=== PATIENT | female | born 1955 | race Two or more races ===

== ENCOUNTER 2021-01-27 11:32 | Inpatient (IN) | payer OTHER ==
[2021-01-27 12:38] VITALS: BMI 26.4
[2021-01-27] MEDS ORDERED: ONDANSETRON *ODT* 4 MG TABLET SL PRN (12:38)
[2021-01-27] MEDS ORDERED: ACETAMINOPHEN 325 MG TABLET (FP) PO PRN ×2 (12:38)
[2021-01-27] MEDS ORDERED: chlordiazePOXIDE HCL 25 MG CAPSULE PO PRN (12:38)
[2021-01-27] MEDS ORDERED: MAG HYDROX/AL HYDROX/SIMETH 30 ML UNIT-DOSE CUP PO PRN (12:38)
[2021-01-27] MEDS ORDERED: NICOTINE POLACRILEX 2 MG GUM BUC PRN (12:38)
[2021-01-27] MEDS ORDERED: IBUPROFEN 400 MG TABLET (FP) PO PRN (12:38)
[2021-01-27] MEDS ORDERED: METHOCARBAMOL 500 MG TABLET PO PRN (12:38)
[2021-01-27] MEDS ORDERED: MAGNESIUM HYDROX 2400MG/30ML ORAL SUSPENSION 30 ML CUP PO PRN (12:38)
[2021-01-27] MEDS ORDERED: BISMUTH SUBSALICYLATE 524 MG/30 ML UD PO PRN (12:38)
[2021-01-27] MEDS ORDERED: MAGNESIUM CITRATE 300 ML BOTTLE PO PRN (12:38)
[2021-01-27] MEDS ORDERED: MENTHOL/PHENOL 1 EACH UD MM PRN (12:38)
[2021-01-27] MEDS: PRENATAL VITAMINS W/ FOLIC ACID TABLET (FP) PO SCH (14:26)
[2021-01-27] MEDS: chlordiazePOXIDE HCL 25 MG CAPSULE PO SCH ×3 (14:26→22:48)
[2021-01-27] MEDS: hydrOXYzine PAMOATE 25 MG CAPSULE (FP) PO SCH ×3 (14:26→22:49)
[2021-01-27 14:32] LABS: HEMATOCRIT 25.8 % (32.4-45.2); HEMOGLOBIN 8.8 GM/dL (10.7-15.3); MCH 36.6 pg (25.7-33.7); MCHC 34.1 g/dl (32.0-36.0); MEAN CELL VOLUME 107.2 fl (80-96); MEAN PLT VOLUME 8.7 fl (7.5-11.1); PLATELET COUNT 101 K/MM3 (134-434); RDW 18.2 % (11.6-15.6)
[2021-01-27 14:39] LABS: CALCIUM 8.8 mg/dL (8.5-10.1)
[2021-01-27 14:40] LABS: ALBUMIN 3.4 g/dl (3.4-5.0)
[2021-01-27 14:43] LABS: BILIRUBIN,TOTAL 1.4 mg/dL (0.2-1); CREATININE 0.8 mg/dL (0.55-1.3)
[2021-01-27] MEDS: THIAMINE HCL 100 MG TABLET (FP) PO SCH (22:49)
[2021-01-27] MEDS: MELATONIN 5 MG TABLETS PO SCH (22:49)
[2021-01-28] MEDS: chlordiazePOXIDE HCL 25 MG CAPSULE PO SCH ×4 (06:11→23:12)
[2021-01-28] MEDS: hydrOXYzine PAMOATE 25 MG CAPSULE (FP) PO SCH ×5 (06:12→22:50)
[2021-01-28] MEDS: PRENATAL VITAMINS W/ FOLIC ACID TABLET (FP) PO SCH (10:31)
[2021-01-28] MEDS ORDERED: NICOTINE 21 MG/24 HOURS TOPICAL PATCH TD SCH ×2 (11:34→13:00)
[2021-01-28] MEDS ORDERED: MASKS NR ONE (11:40)
[2021-01-28] MEDS ORDERED: COLLOIDAL OATMEAL 1 BAR EACH TP PRN (14:37)
[2021-01-28] MEDS ORDERED: AMMONIUM LACTATE 12% LOTION 225 GM BOTTLE TP PRN (14:37)
[2021-01-28] MEDS: FERROUS SO4 325 MG TABLET (FP) PO SCH (17:34)
[2021-01-28] MEDS ORDERED: traZODone HCL 50 MG TABLET (FP) PO SCH (22:00)
[2021-01-28 22:03] VITALS: BP 121/77; PULSE 68; TEMP 97.1
[2021-01-28] MEDS: MELATONIN 5 MG TABLETS PO SCH (22:50)
[2021-01-28] MEDS: THIAMINE HCL 100 MG TABLET (FP) PO SCH (22:51)
[2021-01-29] MEDS: hydrOXYzine PAMOATE 25 MG CAPSULE (FP) PO SCH ×2 (06:11→10:40)
[2021-01-29] MEDS: chlordiazePOXIDE HCL 25 MG CAPSULE PO SCH ×2 (06:11→10:40)
[2021-01-29] MEDS ORDERED: SELENIUM SULFIDE 2.5% LOTION 4 OZ. TP SCH (10:00)
[2021-01-29] MEDS: PRENATAL VITAMINS W/ FOLIC ACID TABLET (FP) PO SCH (10:40)
[2021-01-29] MEDS: FERROUS SO4 325 MG TABLET (FP) PO SCH ×2 (10:40→13:02)
[2021-01-30] MEDS ORDERED: chlordiazePOXIDE HCL 10 MG CAPSULE PO PRN
[2021-01-30] MEDS ORDERED: chlordiazePOXIDE HCL 10 MG CAPSULE PO SCH (05:00)
[2021-01-31] MEDS ORDERED: chlordiazePOXIDE HCL 10 MG CAPSULE PO SCH (05:00)
[2021-02-01] MEDS ORDERED: chlordiazePOXIDE HCL 10 MG CAPSULE PO ONE (05:00)
== END 2021-01-29 11:41 | disposition left against medical advice (07) | DRG 770 ==
LOC: EDSEX → YASAS 11:32 → Y3N 13:38
PROVIDERS: ADMIT Allergy & Immunology; ATTEND Allergy & Immunology
PROC: HZ2ZZZZ Detoxification Services for Substance Abuse Treatment (ICD-10-PCS; principal; 2021-01-27)
DX: F10.230 Alcohol dependence with withdrawal, uncomplicated (principal); F17.210 Nicotine dependence, cigarettes, uncomplicated; F10.24 Alcohol dependence with alcohol-induced mood disorder; F32.9 Major depressive disorder, single episode, unspecified; F43.10 Post-traumatic stress disorder, unspecified; G40.509 Epileptic seizures related to external causes, not intractable, without status epilepticus; M51.36 Other intervertebral disc degeneration, lumbar region; L29.8 Other pruritus; R19.5 Other fecal abnormalities; Z96.641 Presence of right artificial hip joint
CPT/HCPCS: 36415; 80053; 85027; 86780; 93005; 93010; C9803; U0003

== ENCOUNTER 2021-01-28 20:35 | Inpatient (IN) | payer OTHER ==
[2021-01-28 21:14] VITALS: BMI 26.4
[2021-01-28 22:19] LABS: BASO % 0.8 % (0-2.0); EOS % 6.2 % (0-4.5); HEMATOCRIT 26.6 % (32.4-45.2); HEMOGLOBIN 9.1 GM/dL (10.7-15.3); LYMPH % 31.7 % (8-40); MCH 36.9 pg (25.7-33.7); MCHC 34.2 g/dl (32.0-36.0); MEAN CELL VOLUME 107.8 fl (80-96); MONO % 10.6 % (3.8-10.2); NEUT % 50.7 % (42.8-82.8); PLATELET COUNT 108 K/MM3 (134-434); RBC 2.47 M/mm3 (3.60-5.2); RDW 18.1 % (11.6-15.6); WHITE BLOOD COUNT 4.8 K/mm3 (4.0-10.0)
[2021-01-28 22:23] LABS: INR 1.07 (0.83-1.09); PROTHROMBIN TIME (PATIENT) 13.1 SEC (9.7-13.0)
[2021-01-28 22:26] LABS: ACTIVATED PTT 27.6 SECONDS (25.2-36.5)
[2021-01-28] MEDS ORDERED: chlordiazePOXIDE HCL 25 MG CAPSULE PO ONE (23:17)
[2021-01-28] MEDS ORDERED: traZODone HCL 50 MG TABLET (FP) PO ONE (23:17)
[2021-01-28] MEDS ORDERED: chlordiazePOXIDE HCL 25 MG CAPSULE ONE (23:22)
[2021-01-28 23:41] LABS: ANISOCYTOSIS 0; MACROCYTOSIS 1+
[2021-01-28 23:57] LABS: ALBUMIN 3.4 g/dl (3.4-5.0); BLOOD UREA NITROGEN 14.2 mg/dL (7-18); CALCIUM 9.4 mg/dL (8.5-10.1); CREATININE 0.7 mg/dL (0.55-1.3); POTASSIUM 4.3 mmol/L (3.5-5.1); TOT PROT 6.7 g/dl (6.4-8.2)
[2021-01-29 01:10] VITALS: BP 111/67; PULSE 85; TEMP 98.4
[2021-01-29] MEDS ORDERED: PANTOPRAZOLE SODIUM 40 MG VIAL IVPUSH ONE (01:10)
[2021-01-29] MEDS ORDERED: PANTOPRAZOLE SODIUM 40 MG/100 ML BAG IVPB ONE (01:14)
[2021-01-29] MEDS ORDERED: ACETAMINOPHEN 325 MG TABLET (FP) PO PRN (05:49)
[2021-01-29] MEDS ORDERED: METOCLOPRAMIDE HCL INJECTION 10 MG/2 ML VIAL IVPUSH PRN (05:52)
[2021-01-29] MEDS ORDERED: NICOTINE 21 MG/24 HOURS TOPICAL PATCH TD SCH ×2 (05:54→10:00)
[2021-01-29] MEDS ORDERED: chlordiazePOXIDE HCL 25 MG CAPSULE PO PRN (05:54)
[2021-01-29] MEDS ORDERED: PANTOPRAZOLE SODIUM 80 MG in SODIUM CHLORIDE 100 ML IVPB SCH (06:00)
[2021-01-29] MEDS ORDERED: SODIUM CHLORIDE 1,000 ML IV SCH (06:00)
[2021-01-29] MEDS ORDERED: FOLIC ACID INJECTION - 1 MG, THIAMINE HCL 100 MG, MULTIVIT INJECTION ADULT 10 ML in SOD... IVPB ONE (06:45)
[2021-01-29] MEDS ORDERED: chlordiazePOXIDE HCL 10 MG CAPSULE PO PRN (08:30)
[2021-01-29] MEDS ORDERED: PANTOPRAZOLE SODIUM 40 MG VIAL IVPUSH SCH (10:00)
[2021-01-29] MEDS ORDERED: THIAMINE HCL 200 MG/2 ML VIAL IVPB SCH (10:00)
[2021-01-29] MEDS ORDERED: FOLIC ACID 1 MG TABLET (FP) PO SCH (10:00)
[2021-01-29] MEDS ORDERED: chlordiazePOXIDE HCL 25 MG CAPSULE PO SCH ×2 (11:00)
[2021-01-29] MEDS ORDERED: traZODone HCL 50 MG TABLET (FP) PO SCH (22:00)
[2021-01-29] MEDS ORDERED: PATIENT'S OWN MEDICATION (NON-FORMULARY) (Trazodone Hcl [Trazodone Hcl] 150 MG Tablet) PO SCH (22:00)
[2021-01-30] MEDS ORDERED: chlordiazePOXIDE HCL 10 MG CAPSULE PO SCH (11:00)
[2021-01-31] MEDS ORDERED: chlordiazePOXIDE HCL 25 MG CAPSULE PO SCH (05:00)
[2021-01-31] MEDS ORDERED: chlordiazePOXIDE HCL 10 MG CAPSULE PO SCH (11:00)
[2021-02-01] MEDS ORDERED: chlordiazePOXIDE HCL 10 MG CAPSULE PO PRN
[2021-02-01] MEDS ORDERED: chlordiazePOXIDE HCL 10 MG CAPSULE PO ONE (05:00)
[2021-02-01] MEDS ORDERED: chlordiazePOXIDE HCL 10 MG CAPSULE PO SCH (05:00)
[2021-02-02] MEDS ORDERED: chlordiazePOXIDE HCL 10 MG CAPSULE PO SCH (05:00)
[2021-02-03] MEDS ORDERED: chlordiazePOXIDE HCL 10 MG CAPSULE PO ONE (05:00)
== END 2021-01-29 09:50 | disposition left against medical advice (07) | DRG 253 ==
LOC: JER 20:35 → JERBED 01-29 03:15
PROVIDERS: ADMIT Internal Medicine; ATTEND Internal Medicine
PROC: HZ2ZZZZ Detoxification Services for Substance Abuse Treatment (ICD-10-PCS; principal; 2021-01-29)
DX: K92.2 Gastrointestinal hemorrhage, unspecified (principal); F32.9 Major depressive disorder, single episode, unspecified; D53.9 Nutritional anemia, unspecified; F17.210 Nicotine dependence, cigarettes, uncomplicated; F43.10 Post-traumatic stress disorder, unspecified; F10.239 Alcohol dependence with withdrawal, unspecified
CPT/HCPCS: 36415; 71045-TC-FY; 80053; 82272; 82728; 83540; 83550; 85025; 85610; 85730; 86850; 86900; 86901; 93005; 93010; 99285-25

== ENCOUNTER 2021-03-08 11:55 | Emergency (ER) | payer OTHER ==
[2021-03-08 12:16] VITALS: BP 135/84; PULSE 95; TEMP 98.5; BMI 24.5
[2021-03-08] MEDS ORDERED: FOLIC ACID INJECTION - 1 MG, THIAMINE HCL 100 MG, MULTIVIT INJECTION ADULT 10 ML in SOD... IVPB ONE (12:52)
[2021-03-08] MEDS ORDERED: HALOPERIDOL LACTATE 5 MG/ML IM ONE (13:52)
[2021-03-08 14:11] LABS: EOS % 0.5 % (0-4.5); HEMATOCRIT 29.2 % (32.4-45.2); HEMOGLOBIN 9.9 GM/dL (10.7-15.3); LYMPH % 39.3 % (8-40); MCH 35.4 pg (25.7-33.7); MEAN PLT VOLUME 8.1 fl (7.5-11.1); MONO % 9.4 % (3.8-10.2); NEUT % 49.8 % (42.8-82.8); PLATELET COUNT 209 K/MM3 (134-434); PROTHROMBIN TIME (PATIENT) 12.1 SEC (9.7-13.0); RBC 2.81 M/mm3 (3.60-5.2); RDW 19.3 % (11.6-15.6); WHITE BLOOD COUNT 5.1 K/mm3 (4.0-10.0)
[2021-03-08] MEDS ORDERED: HALOPERIDOL LACTATE 5 MG/ML ONE ×2 (14:12→14:15)
[2021-03-08 14:14] LABS: ACTIVATED PTT 28.5 SECONDS (25.2-36.5)
[2021-03-08 14:25] LABS: CALCIUM 8.4 mg/dL (8.5-10.1)
[2021-03-08 14:26] LABS: ALBUMIN 3.7 g/dl (3.4-5.0); BLOOD UREA NITROGEN 14.6 mg/dL (7-18); MAGNESIUM 1.6 mg/dL (1.8-2.4)
[2021-03-08 14:29] LABS: CREATININE 0.8 mg/dL (0.55-1.3); PHOSPHOROUS 3.4 mg/dL (2.5-4.9)
[2021-03-08 14:31] LABS: BILIRUBIN,TOTAL 0.6 mg/dL (0.2-1); TOT PROT 8.2 g/dl (6.4-8.2)
== END 2021-03-08 17:10 | disposition home or self-care (01) ==
LOC: JER 11:55
PROC: 3E023NZ Introduction of Analgesics, Hypnotics, Sedatives into Muscle, Percutaneous Approach (ICD-10-PCS; principal; 2021-03-08)
DX: F10.929 Alcohol use, unspecified with intoxication, unspecified (principal)
CPT/HCPCS: 36415; 70450-TC; 70486-TC; 72125-TC; 80053; 80307; 83735; 84100; 85025; 85610; 85730; 93005; 93010; 99285-25

== ENCOUNTER 2021-03-08 17:30 | Inpatient (IN) | payer OTHER ==
[2021-03-08] MEDS: THIAMINE HCL 100 MG TABLET (FP) PO SCH (11:40)
[2021-03-08 18:21] VITALS: BMI 24.4
[2021-03-08] MEDS ORDERED: MENTHOL/PHENOL 1 EACH UD MM PRN (18:34)
[2021-03-08] MEDS ORDERED: MAGNESIUM CITRATE 300 ML BOTTLE PO PRN (18:34)
[2021-03-08] MEDS ORDERED: LORazepam 1 MG TABLET PO PRN (18:34)
[2021-03-08] MEDS ORDERED: ONDANSETRON *ODT* 4 MG TABLET SL PRN (18:34)
[2021-03-08] MEDS ORDERED: MAG HYDROX/AL HYDROX/SIMETH 30 ML UNIT-DOSE CUP PO PRN (18:34)
[2021-03-08] MEDS ORDERED: MAGNESIUM HYDROX 2400MG/30ML ORAL SUSPENSION 30 ML CUP PO PRN (18:34)
[2021-03-08] MEDS ORDERED: ACETAMINOPHEN 325 MG TABLET (FP) PO PRN ×2 (18:34)
[2021-03-08] MEDS ORDERED: IBUPROFEN 400 MG TABLET (FP) PO PRN (18:34)
[2021-03-08] MEDS ORDERED: METHOCARBAMOL 500 MG TABLET PO PRN (18:34)
[2021-03-08] MEDS ORDERED: NICOTINE POLACRILEX 2 MG GUM BUC PRN (18:34)
[2021-03-08] MEDS ORDERED: BISMUTH SUBSALICYLATE 524 MG/30 ML UD PO PRN (18:34)
[2021-03-08] MEDS ORDERED: LORazepam 1 MG TABLET ONE (19:58)
[2021-03-08] MEDS ORDERED: hydrOXYzine PAMOATE 25 MG CAPSULE (FP) PO ONE (19:58)
[2021-03-08] MEDS: hydrOXYzine PAMOATE 25 MG CAPSULE (FP) PO PRN (20:00)
[2021-03-08] MEDS ORDERED: LORazepam 2 MG TABLET ONE (23:35)
[2021-03-08] MEDS: LORazepam 2 MG TABLET PO SCH (23:40)
[2021-03-08] MEDS: MELATONIN 5 MG TABLETS PO SCH (23:40)
[2021-03-09] MEDS: LORazepam 2 MG TABLET PO SCH ×4 (06:09→22:21)
[2021-03-09] MEDS: NICOTINE 7 MG/24 HOURS TOPICAL PATCH TD SCH (10:22)
[2021-03-09] MEDS: PRENATAL VITAMINS W/ FOLIC ACID TABLET (FP) PO SCH (10:22)
[2021-03-09 10:44] LABS: HEMATOCRIT 24.5 % (32.4-45.2); HEMOGLOBIN 8.4 GM/dL (10.7-15.3); MCH 35.2 pg (25.7-33.7); MCHC 34.4 g/dl (32.0-36.0); MEAN CELL VOLUME 102.2 fl (80-96); MEAN PLT VOLUME 8.6 fl (7.5-11.1); PLATELET COUNT 130 K/MM3 (134-434); RBC 2.39 M/mm3 (3.60-5.2); RDW 18.5 % (11.6-15.6); WHITE BLOOD COUNT 4.2 K/mm3 (4.0-10.0)
[2021-03-09 10:47] LABS: CALCIUM 8.2 mg/dL (8.5-10.1)
[2021-03-09 10:48] LABS: ALBUMIN 3.2 g/dl (3.4-5.0); BLOOD UREA NITROGEN 13.4 mg/dL (7-18)
[2021-03-09 10:51] LABS: CREATININE 0.8 mg/dL (0.55-1.3)
[2021-03-09 10:52] LABS: BILIRUBIN,TOTAL 1.2 mg/dL (0.2-1)
[2021-03-09] MEDS: hydrOXYzine PAMOATE 25 MG CAPSULE (FP) PO PRN (17:06)
[2021-03-09] MEDS ORDERED: traZODone HCL 100 MG TABLET (FP) PO SCH (22:00)
[2021-03-09] MEDS: THIAMINE HCL 100 MG TABLET (FP) PO SCH (22:21)
[2021-03-09] MEDS: MELATONIN 5 MG TABLETS PO SCH (22:22)
[2021-03-10] MEDS: LORazepam 1 MG TABLET PO SCH ×2 (05:39→11:37)
[2021-03-10 09:22] VITALS: BP 118/68; PULSE 132; TEMP 96.9
[2021-03-10] MEDS: NICOTINE 7 MG/24 HOURS TOPICAL PATCH TD SCH (11:37)
[2021-03-10] MEDS: PRENATAL VITAMINS W/ FOLIC ACID TABLET (FP) PO SCH (11:38)
[2021-03-11] MEDS ORDERED: LORazepam 0.5 MG TABLET PO PRN
[2021-03-11] MEDS ORDERED: LORazepam 0.5 MG TABLET PO SCH (05:00)
[2021-03-12] MEDS ORDERED: LORazepam 0.5 MG TABLET PO ONE (05:00)
== END 2021-03-10 11:51 | disposition left against medical advice (07) | DRG 770 ==
LOC: YASAS 17:30 → Y6N 03-09 01:09
PROVIDERS: ADMIT Allergy & Immunology; ATTEND Allergy & Immunology
PROC: HZ2ZZZZ Detoxification Services for Substance Abuse Treatment (ICD-10-PCS; principal; 2021-03-09)
DX: F10.230 Alcohol dependence with withdrawal, uncomplicated (principal); F17.210 Nicotine dependence, cigarettes, uncomplicated; F10.282 Alcohol dependence with alcohol-induced sleep disorder; F10.24 Alcohol dependence with alcohol-induced mood disorder; F32.9 Major depressive disorder, single episode, unspecified; F43.10 Post-traumatic stress disorder, unspecified; M51.36 Other intervertebral disc degeneration, lumbar region; Z96.641 Presence of right artificial hip joint; R29.6 Repeated falls; Z99.89 Dependence on other enabling machines and devices
CPT/HCPCS: 36415; 80053; 85027; 86780; C9803; U0003; U0005

== ENCOUNTER 2022-01-01 18:07 | Inpatient (IN) | payer OTHER ==
[2022-01-01 18:38] VITALS: BMI 24.5
[2022-01-01] MEDS ORDERED: MAGNESIUM HYDROX 2400MG/30ML ORAL SUSPENSION 30 ML CUP PO PRN (19:26)
[2022-01-01] MEDS ORDERED: MENTHOL/PHENOL 1 EACH UD MM PRN (19:26)
[2022-01-01] MEDS ORDERED: ONDANSETRON *ODT* 4 MG TABLET SL PRN (19:26)
[2022-01-01] MEDS ORDERED: BISMUTH SUBSALICYLATE 524 MG/30 ML PO PRN (19:26)
[2022-01-01] MEDS ORDERED: MELATONIN 5 MG TABLETS PO PRN (19:26)
[2022-01-01] MEDS ORDERED: MAGNESIUM CITRATE 300 ML BOTTLE PO PRN (19:26)
[2022-01-01] MEDS ORDERED: IBUPROFEN 400 MG TABLET (FP) PO PRN (19:26)
[2022-01-01] MEDS ORDERED: MAG HYDROX/AL HYDROX/SIMETH 30 ML UNIT-DOSE CUP PO PRN (19:26)
[2022-01-01] MEDS ORDERED: NICOTINE POLACRILEX 2 MG GUM BUC PRN (19:26)
[2022-01-01] MEDS ORDERED: LOPERAMIDE HCL 2 MG CAPSULE PO PRN (19:26)
[2022-01-01] MEDS ORDERED: chlordiazePOXIDE HCL 25 MG CAPSULE PO PRN (19:29)
[2022-01-01] MEDS ORDERED: chlordiazePOXIDE HCL 25 MG CAPSULE PO ONE (19:29)
[2022-01-01] MEDS ORDERED: METOPROLOL TARTRATE 25 MG TABLET (FP) PO ONE (19:31)
[2022-01-01] MEDS ORDERED: chlordiazePOXIDE HCL 25 MG CAPSULE ONE (19:36)
[2022-01-01] MEDS: chlordiazePOXIDE HCL 25 MG CAPSULE PO SCH (22:22)
[2022-01-01] MEDS: THIAMINE HCL 100 MG TABLET (FP) PO SCH (22:23)
[2022-01-02] MEDS: hydrOXYzine PAMOATE 25 MG CAPSULE (FP) PO PRN ×2 (02:49→10:49)
[2022-01-02] MEDS: chlordiazePOXIDE HCL 25 MG CAPSULE PO SCH ×4 (05:29→22:31)
[2022-01-02] MEDS: PRENATAL VITAMINS W/ FOLIC ACID TABLET (FP) PO SCH (10:49)
[2022-01-02] MEDS: METHOCARBAMOL 500 MG TABLET PO PRN (10:49)
[2022-01-02 11:53] LABS: HEMATOCRIT 25.4 % (32.4-45.2); MCH 26.8 pg (25.7-33.7); MCHC 31.6 g/dl (32.0-36.0); MEAN CELL VOLUME 84.7 fl (80-96); MEAN PLT VOLUME 8.6 fl (7.5-11.1); PLATELET COUNT 126 10^3/uL (134-434); RDW 20.1 % (11.6-15.6); WHITE BLOOD COUNT 3.2 K/mm3 (4.0-10.0)
[2022-01-02 12:09] LABS: CALCIUM 8.5 mg/dL (8.5-10.1)
[2022-01-02 12:10] LABS: ALBUMIN 3.2 g/dl (3.4-5.0); BLOOD UREA NITROGEN 18.2 mg/dL (7-18)
[2022-01-02 12:13] LABS: CREATININE 0.8 mg/dL (0.55-1.3)
[2022-01-02 12:15] LABS: BILIRUBIN,TOTAL 0.8 mg/dL (0.2-1); TOT PROT 6.7 g/dl (6.4-8.2)
[2022-01-02] MEDS: THIAMINE HCL 100 MG TABLET (FP) PO SCH (22:31)
[2022-01-02] MEDS: traZODone HCL 50 MG TABLET (FP) PO SCH (22:31)
[2022-01-03] MEDS: chlordiazePOXIDE HCL 25 MG CAPSULE PO SCH ×4 (06:06→22:51)
[2022-01-03] MEDS: METHOCARBAMOL 500 MG TABLET PO PRN (11:06)
[2022-01-03] MEDS: hydrOXYzine PAMOATE 25 MG CAPSULE (FP) PO PRN (11:06)
[2022-01-03] MEDS: PRENATAL VITAMINS W/ FOLIC ACID TABLET (FP) PO SCH (11:06)
[2022-01-03 14:06] LABS: SARS-CoV-2 NAA Not Detected (Not Detected)
[2022-01-03] MEDS: THIAMINE HCL 100 MG TABLET (FP) PO SCH (21:59)
[2022-01-03] MEDS: traZODone HCL 50 MG TABLET (FP) PO SCH (21:59)
[2022-01-04] MEDS ORDERED: chlordiazePOXIDE HCL 10 MG CAPSULE PO PRN
[2022-01-04] MEDS: chlordiazePOXIDE HCL 10 MG CAPSULE PO SCH ×4 (06:13→22:08)
[2022-01-04] MEDS: FERROUS SO4 325 MG TABLET (FP) PO SCH ×3 (08:03→17:52)
[2022-01-04] MEDS: PRENATAL VITAMINS W/ FOLIC ACID TABLET (FP) PO SCH (10:44)
[2022-01-04 12:43] LABS: BASO % 0.8 % (0-2.0); EOS % 7.1 % (0-4.5); HEMATOCRIT 25.8 % (32.4-45.2); HEMOGLOBIN 8.4 GM/dL (10.7-15.3); LYMPH % 23.4 % (8-40); MCH 27.6 pg (25.7-33.7); MCHC 32.5 g/dl (32.0-36.0); MEAN CELL VOLUME 84.7 fl (80-96); MEAN PLT VOLUME 8.9 fl (7.5-11.1); NEUT % 58.7 % (42.8-82.8); PLATELET COUNT 117 10^3/uL (134-434); RBC 3.04 M/mm3 (3.60-5.2); RDW 20.4 % (11.6-15.6); WHITE BLOOD COUNT 4.4 K/mm3 (4.0-10.0)
[2022-01-04] MEDS: THIAMINE HCL 100 MG TABLET (FP) PO SCH (22:08)
[2022-01-04] MEDS: traZODone HCL 50 MG TABLET (FP) PO SCH (22:09)
[2022-01-05] MEDS ORDERED: chlordiazePOXIDE HCL 10 MG CAPSULE PO SCH (05:00)
[2022-01-05] MEDS: FERROUS SO4 325 MG TABLET (FP) PO SCH ×2 (07:54→11:50)
[2022-01-05 09:41] VITALS: BP 106/62; PULSE 102; TEMP 97.1
[2022-01-05] MEDS ORDERED: MULTIVITAMINS (DAILY MVI) TABLET (FP) PO SCH (10:00)
[2022-01-06] MEDS ORDERED: chlordiazePOXIDE HCL 10 MG CAPSULE PO ONE (05:00)
== END 2022-01-05 17:00 | disposition home or self-care (01) | DRG 775 ==
LOC: YASAS 18:07 → Y6N 21:13
PROVIDERS: ADMIT Allergy & Immunology; ATTEND Allergy & Immunology
PROC: HZ2ZZZZ Detoxification Services for Substance Abuse Treatment (ICD-10-PCS; principal; 2022-01-01)
DX: F10.230 Alcohol dependence with withdrawal, uncomplicated (principal); F17.210 Nicotine dependence, cigarettes, uncomplicated; F10.282 Alcohol dependence with alcohol-induced sleep disorder; F32.A Depression, unspecified; F43.10 Post-traumatic stress disorder, unspecified; D61.818 Other pancytopenia; D50.9 Iron deficiency anemia, unspecified; I10 Essential (primary) hypertension; R41.82 Altered mental status, unspecified; R74.01 Elevation of levels of liver transaminase levels; R26.89 Other abnormalities of gait and mobility; Z96.641 Presence of right artificial hip joint; W19.XXXA Unspecified fall, initial encounter; Y92.230 Patient room in hospital as the place of occurrence of the external cause; Z99.89 Dependence on other enabling machines and devices
CPT/HCPCS: 36415; 80053; 82607; 82746; 83540; 84450; 85025; 85027; 86780; 87811; C9803; U0003; U0005

== ENCOUNTER 2022-01-04 02:11 | Emergency (ER) | payer OTHER ==
[2022-01-04 02:28] VITALS: BP 121/62; PULSE 74; TEMP 97.6; BMI 25.7
== END 2022-01-04 05:54 | disposition home or self-care (01) ==
LOC: JER 02:11
DX: R29.6 Repeated falls (principal)
CPT/HCPCS: 70450-TC; 72125-TC; 99284-25

== ENCOUNTER 2022-01-05 10:03 | Emergency (ER) | payer OTHER ==
[2022-01-05 10:30] VITALS: PULSE 78; TEMP 98; BMI 25.7
[2022-01-05 12:06] LABS: BASO % 0.4 % (0-2.0); EOS % 5.8 % (0-4.5); HEMATOCRIT 24.7 % (32.4-45.2); HEMOGLOBIN 7.9 GM/dL (10.7-15.3); MCH 27.3 pg (25.7-33.7); MCHC 31.8 g/dl (32.0-36.0); MEAN CELL VOLUME 85.7 fl (80-96); MEAN PLT VOLUME 8.3 fl (7.5-11.1); NEUT % 47.8 % (42.8-82.8); PLATELET COUNT 97 10^3/uL (134-434); RBC 2.89 M/mm3 (3.60-5.2); RDW 20.9 % (11.6-15.6); WHITE BLOOD COUNT 4.3 K/mm3 (4.0-10.0)
[2022-01-05 12:24] LABS: CHLORIDE 101 mmol/L (98-107); SODIUM 137 mmol/L (136-145)
[2022-01-05 12:26] LABS: CALCIUM 9.2 mg/dL (8.5-10.1)
[2022-01-05 12:27] LABS: ALBUMIN 3.4 g/dl (3.4-5.0); ANION GAP 7 MMOL/L (8-16); BLOOD UREA NITROGEN 13.2 mg/dL (7-18); CO2 28 mmol/L (21-32); GLUCOSE,RANDOM 113 mg/dL (74-106)
[2022-01-05 12:30] LABS: CREATININE 1.2 mg/dL (0.55-1.3); SGOT/AST 58 U/L (15-37); SGPT/ALT 38 U/L (13-61)
[2022-01-05 12:31] LABS: BILIRUBIN,TOTAL 0.6 mg/dL (0.2-1)
[2022-01-05 12:33] LABS: ALK PHOS 86 U/L (45-117)
[2022-01-05 13:29] LABS: ANISOCYTOSIS 2+; MACROCYTOSIS 1+; OVALOCYTE 1+; PLATELET ESTIMATE DECREASED
[2022-01-05 15:59] VITALS: BP 102/51
== END 2022-01-05 15:57 | disposition home or self-care (01) ==
LOC: JER 10:03
DX: R41.82 Altered mental status, unspecified (principal)
CPT/HCPCS: 36415; 70450-TC; 80053; 80307; 82140; 82962; 84443; 85025; 99284-25

== ENCOUNTER 2022-08-03 17:21 | Inpatient (IN) | payer OTHER ==
[2022-08-03 18:26] VITALS: BMI 28.3
[2022-08-03] MEDS ORDERED: chlordiazePOXIDE HCL 25 MG CAPSULE PO ONE (19:24)
[2022-08-03] MEDS ORDERED: chlordiazePOXIDE HCL 25 MG CAPSULE ONE (20:20)
[2022-08-03] MEDS ORDERED: SODIUM CHLORIDE 1,000 ML IV STA (20:58)
[2022-08-03 23:54] LABS: BASO % 0.8 % (0-2.0); EOS % 0.2 % (0-4.5); HEMATOCRIT 22.7 % (32.4-45.2); HEMOGLOBIN 7.4 GM/dL (10.7-15.3); LYMPH % 24.7 % (8-40); MCH 33.1 pg (25.7-33.7); MCHC 32.5 g/dl (32.0-36.0); MEAN CELL VOLUME 101.9 fl (80-96); MEAN PLT VOLUME 8.3 fl (7.5-11.1); MONO % 12.8 % (3.8-10.2); NEUT % 61.5 % (42.8-82.8); PLATELET COUNT 123 10^3/uL (134-434); RBC 2.22 M/mm3 (3.60-5.2); RDW 24.7 % (11.6-15.6); WHITE BLOOD COUNT 7.6 K/mm3 (4.0-10.0)
[2022-08-04 00:13] LABS: CHLORIDE 94 mmol/L (98-107); SODIUM 137 mmol/L (136-145)
[2022-08-04 00:15] LABS: CALCIUM 7.6 mg/dL (8.5-10.1)
[2022-08-04 00:16] LABS: ALBUMIN 2.8 g/dl (3.4-5.0); ANION GAP 28 MMOL/L (8-16); BLOOD UREA NITROGEN 18.2 mg/dL (7-18); CO2 14 mmol/L (21-32); GLUCOSE,RANDOM 67 mg/dL (74-106)
[2022-08-04 00:19] LABS: SGOT/AST 166 U/L (15-37); SGPT/ALT 35 U/L (13-61)
[2022-08-04 00:20] LABS: TOT PROT 6.4 g/dl (6.4-8.2)
[2022-08-04 00:21] LABS: BILIRUBIN,TOTAL 1.4 mg/dL (0.2-1)
[2022-08-04 00:22] LABS: ALK PHOS 108 U/L (45-117)
[2022-08-04] MEDS ORDERED: DEXTROSE 50%-WATER - 25 GM/50 ML VIAL IVPUSH ONE (00:31)
[2022-08-04] MEDS ORDERED: DEXTROSE 50%-WATER 25 GM/50 ML DISP.SYRIN ONE (00:42)
[2022-08-04] MEDS ORDERED: ASPIRIN 81 MG CHEWABLE TABLETS PO ONE (00:42)
[2022-08-04] MEDS ORDERED: ASPIRIN 81 MG CHEWABLE TABLETS ONE (00:43)
[2022-08-04] MEDS ORDERED: DEXTROSE 5%-LACTATED RINGERS 1,000 ML IV SCH (01:45)
[2022-08-04] MEDS ORDERED: THIAMINE HCL 200 MG/2 ML VIAL IVPB ONE ×2 (02:25→02:29)
[2022-08-04] MEDS ORDERED: FOLIC ACID INJECTION - 1 MG, THIAMINE HCL 100 MG, MULTIVIT INJECTION ADULT 10 ML in SOD... IVPB ONE (02:25)
[2022-08-04 02:43] LABS: MAGNESIUM 0.9 mg/dL (1.8-2.4)
[2022-08-04 02:46] LABS: BILIRUBIN,DIRECT 0.9 mg/dL (0.0-0.2)
[2022-08-04 02:47] LABS: PHOSPHOROUS 3.5 mg/dL (2.5-4.9)
[2022-08-04] MEDS ORDERED: MAGNESIUM SULF 50% (8.12 MEQ/2 ML-1 GM VIAL) IVPB ONE (02:48)
[2022-08-04] MEDS ORDERED: LORazepam 1 MG TABLET PO PRN ×2 (03:08→18:17)
[2022-08-04 03:26] LABS: RETICULOCYTES 2.68 % (0.5-1.5)
[2022-08-04] MEDS ORDERED: MAGNESIUM SULFATE IN WATER 2 GM/50 ML IVPB IVPB ONE (03:30)
[2022-08-04] MEDS ORDERED: THIAMINE HCL 200 MG/2 ML VIAL ONE (04:00)
[2022-08-04] MEDS ORDERED: PANTOPRAZOLE SODIUM 80 MG in SODIUM CHLORIDE 100 ML IVPB SCH (04:45)
[2022-08-04 04:50] LABS: ERYTHROCYTE SEDIMENTATION RATE 20 mm/hr (0-30)
[2022-08-04] MEDS ORDERED: PANTOPRAZOLE SODIUM 40 MG VIAL IVPUSH ONE (04:53)
[2022-08-04] MEDS ORDERED: LORazepam 2 MG TABLET PO SCH (05:00)
[2022-08-04] MEDS ORDERED: LORazepam 1 MG TABLET ONE (05:22)
[2022-08-04] MEDS ORDERED: PANTOPRAZOLE SODIUM 40 MG VIAL ONE ×2 (05:22→11:49)
[2022-08-04 07:10] LABS: INR 1.31 (0.83-1.09); PROTHROMBIN TIME (PATIENT) 15.1 SEC (9.7-13.0)
[2022-08-04 07:30] LABS: CALCIUM 7.6 mg/dL (8.5-10.1)
[2022-08-04 07:31] LABS: ALBUMIN 2.6 g/dl (3.4-5.0); BLOOD UREA NITROGEN 19.7 mg/dL (7-18); MAGNESIUM 1.8 mg/dL (1.8-2.4)
[2022-08-04 07:34] LABS: CREATININE 1.1 mg/dL (0.55-1.3)
[2022-08-04 07:35] LABS: BILIRUBIN,TOTAL 1.8 mg/dL (0.2-1); TOT PROT 6.2 g/dl (6.4-8.2)
[2022-08-04] MEDS ORDERED: SODIUM CHLORIDE 1,000 ML IV STA (07:50)
[2022-08-04 08:32] LABS: LACTIC ACID 5.6 mmol/L (0.4-2.0)
[2022-08-04] MEDS: FOLIC ACID 1 MG TABLET (FP) PO SCH (09:36)
[2022-08-04] MEDS ORDERED: ASPIRIN COATED 81 MG TABLET.EC PO SCH (10:00)
[2022-08-04] MEDS ORDERED: PANTOPRAZOLE SODIUM 40 MG VIAL IVPUSH SCH (10:00)
[2022-08-04] MEDS ORDERED: ENOXAPARIN NA (PORCINE) 40 MG/0.4 ML DISP.SYRIN SQ SCH (10:00)
[2022-08-04] MEDS ORDERED: NAPH,MB-DB/K PH,MBDB POWDER PACKET PO ONE (10:15)
[2022-08-04 11:18] LABS: BILIRUBIN,DIRECT 0.9 mg/dL (0.0-0.2)
[2022-08-04] MEDS: LORazepam 1 MG TABLET PO SCH ×2 (11:44→18:40)
[2022-08-04] MEDS ORDERED: NICOTINE 21 MG/24 HOURS TOPICAL PATCH ONE (12:56)
[2022-08-04] MEDS ORDERED: NAPH,MB-DB/K PH,MBDB POWDER PACKET ONE (12:56)
[2022-08-04] MEDS: NICOTINE 21 MG/24 HOURS TOPICAL PATCH TD SCH (13:02)
[2022-08-04 15:07] LABS: BASO % 0.5 % (0-2.0); EOS % 1.1 % (0-4.5); HEMATOCRIT 17.3 % (32.4-45.2); LYMPH % 18.7 % (8-40); MCH 32.7 pg (25.7-33.7); MCHC 33.2 g/dl (32.0-36.0); MEAN CELL VOLUME 98.6 fl (80-96); MEAN PLT VOLUME 8.1 fl (7.5-11.1); MONO % 12.9 % (3.8-10.2); NEUT % 66.8 % (42.8-82.8); PLATELET COUNT 105 10^3/uL (134-434); RBC 1.75 M/mm3 (3.60-5.2); RDW 24.7 % (11.6-15.6); WHITE BLOOD COUNT 5.1 K/mm3 (4.0-10.0)
[2022-08-04 15:16] LABS: HEMOGLOBIN 5.7 GM/dL (10.7-15.3)
[2022-08-04] MEDS ORDERED: PHYTONADIONE 10 MG/1 ML AMP IVPB ONE (16:33)
[2022-08-04] MEDS ORDERED: LORazepam 2 MG/ML SDV VIAL IVPUSH ONE ×3 (17:00→23:00)
[2022-08-04] MEDS ORDERED: PHYTONADIONE 10 MG/1 ML AMP ONE (17:25)
[2022-08-04] MEDS ORDERED: LACTATED RINGERS SOLUTION 1,000 ML/1,000 ML INFUS.BAG IV SCH (17:30)
[2022-08-04] MEDS: PANTOPRAZOLE SODIUM 80 MG in SODIUM CHLORIDE 100 ML IVPB SCH (18:41)
[2022-08-04 23:37] LABS: HEMATOCRIT 30.5 % (32.4-45.2); HEMOGLOBIN 10.3 GM/dL (10.7-15.3); MCH 31.7 pg (25.7-33.7); MCHC 33.8 g/dl (32.0-36.0); MEAN CELL VOLUME 93.9 fl (80-96); MEAN PLT VOLUME 8.6 fl (7.5-11.1); PLATELET COUNT 120 10^3/uL (134-434); RBC 3.25 M/mm3 (3.60-5.2); RDW 18.9 % (11.6-15.6); WHITE BLOOD COUNT 6.5 K/mm3 (4.0-10.0)
[2022-08-04 23:49] LABS: OPIATES, URI NEGATIVE (NEGATIVE); URINE BARBITURATES NEGATIVE (NEGATIVE)
[2022-08-04 23:50] LABS: COCAINE, UR NEGATIVE (NEGATIVE); PHENCYCLIDINE,URINE NEGATIVE (NEGATIVE); URINE AMPHETAMINES NEGATIVE (NEGATIVE)
[2022-08-04 23:57] LABS: URINE APPEARANCE CLEAR; URINE BILIRUBIN NEGATIVE (NEGATIVE); URINE COLOR YELLOW; URINE GLUCOSE (UA) NEGATIVE (NEGATIVE); URINE KETONE 1+ (NEGATIVE); URINE LEUK ESTERASE NEGATIVE (NEGATIVE); URINE NITRITE NEGATIVE (NEGATIVE); URINE PROTEIN TRACE (NEGATIVE)
[2022-08-05 00:39] LABS: METHADONE, UR NEGATIVE (NEGATIVE); URINE BENZODIAZEPINES POSITIVE (NEGATIVE)
[2022-08-05] MEDS: PANTOPRAZOLE SODIUM 80 MG in SODIUM CHLORIDE 100 ML IVPB SCH (03:29)
[2022-08-05] MEDS ORDERED: hydrOXYzine PAMOATE 25 MG CAPSULE (FP) PO ONE (03:47)
[2022-08-05] MEDS ORDERED: LORazepam 2 MG/ML SDV VIAL IVPUSH ONE ×6 (05:00→23:00)
[2022-08-05] MEDS ORDERED: LORazepam 1 MG TABLET PO SCH (05:00)
[2022-08-05 07:44] LABS: BASO % 0.4 % (0-2.0); EOS % 1.1 % (0-4.5); HEMATOCRIT 31.6 % (32.4-45.2); HEMOGLOBIN 10.6 GM/dL (10.7-15.3); LYMPH % 11.9 % (8-40); MCH 31.6 pg (25.7-33.7); MCHC 33.5 g/dl (32.0-36.0); MEAN CELL VOLUME 94.4 fl (80-96); MEAN PLT VOLUME 8.6 fl (7.5-11.1); MONO % 9.7 % (3.8-10.2); NEUT % 76.9 % (42.8-82.8); PLATELET COUNT 108 10^3/uL (134-434); RBC 3.34 M/mm3 (3.60-5.2); RDW 19.7 % (11.6-15.6); WHITE BLOOD COUNT 6.3 K/mm3 (4.0-10.0)
[2022-08-05] MEDS ORDERED: DEXTROSE 5%-LACTATED RINGERS 1,000 ML IV SCH (07:45)
[2022-08-05 07:52] LABS: INR 1.39 (0.83-1.09)
[2022-08-05 07:59] LABS: CHLORIDE 100 mmol/L (98-107); SODIUM 138 mmol/L (136-145)
[2022-08-05 08:03] LABS: BLOOD UREA NITROGEN 12.1 mg/dL (7-18)
[2022-08-05 08:04] LABS: ALBUMIN 2.7 g/dl (3.4-5.0); GLUCOSE,RANDOM 129 mg/dL (74-106)
[2022-08-05 08:06] LABS: ANION GAP 15 MMOL/L (8-16); BILIRUBIN,DIRECT 2.4 mg/dL (0.0-0.2); CO2 23 mmol/L (21-32); CREATININE 0.7 mg/dL (0.55-1.3); SGOT/AST 236 U/L (15-37)
[2022-08-05 08:08] LABS: TOT PROT 6.3 g/dl (6.4-8.2)
[2022-08-05 08:09] LABS: SGPT/ALT 40 U/L (13-61)
[2022-08-05 08:10] LABS: ALK PHOS 114 U/L (45-117)
[2022-08-05 08:11] LABS: BILIRUBIN,TOTAL 3.7 mg/dL (0.2-1)
[2022-08-05] MEDS: FOLIC ACID 1 MG TABLET (FP) PO SCH (10:20)
[2022-08-05] MEDS: NICOTINE 21 MG/24 HOURS TOPICAL PATCH TD SCH (10:20)
[2022-08-05] MEDS: KCL 10 MEQ IVPB 10 MEQ/100 ML INFUS.BAG IVPB SCH ×3 (10:20→14:49)
[2022-08-05] MEDS ORDERED: KCL 10 MEQ IVPB 10 MEQ/100 ML INFUS.BAG IVPB SCH (11:15)
[2022-08-05 11:43] LABS: MAGNESIUM 1.3 mg/dL (1.8-2.4)
[2022-08-05 11:59] LABS: PHOSPHOROUS 0.8 mg/dL (2.5-4.9)
[2022-08-05] MEDS ORDERED: NAPH,MB-DB/K PH,MBDB POWDER PACKET PO ONE (11:59)
[2022-08-05] MEDS ORDERED: MAGNESIUM 1GM/D5W 100ML - 100 ML IVPB IVPB ONE (11:59)
[2022-08-05] MEDS ORDERED: SODIUM PHOSPHATE - 0 MM in DEXTROSE 5%-WATER - 250 ML IVPB ONE (12:53)
[2022-08-05] MEDS ORDERED: SODIUM PHOSPHATE - 45 MM in DEXTROSE 5%-WATER - 500 ML IVPB ONE (14:30)
[2022-08-05] MEDS ORDERED: MAGNESIUM SULF 50% (8.12 MEQ/2 ML-1 GM VIAL) ONE (14:36)
[2022-08-05] MEDS: THIAMINE HCL 100 MG TABLET (FP) PO SCH (18:00)
[2022-08-06] MEDS ORDERED: LORazepam 0.5 MG TABLET PO PRN ×2
[2022-08-06] MEDS ORDERED: POTASSIUM PHOSPHATE 30 MM in DEXTROSE 5%-WATER - 500 ML IVPB ONE (03:03)
[2022-08-06] MEDS ORDERED: LORazepam 0.5 MG TABLET PO SCH (05:00)
[2022-08-06] MEDS: LORazepam 0.5 MG TABLET PO SCH ×5 (06:52→23:35)
[2022-08-06] MEDS: THIAMINE HCL 100 MG TABLET (FP) PO SCH (09:25)
[2022-08-06] MEDS: FOLIC ACID 1 MG TABLET (FP) PO SCH (09:25)
[2022-08-06] MEDS: PANTOPRAZOLE 40 MG TABLET PO SCH (09:25)
[2022-08-06] MEDS: NICOTINE 21 MG/24 HOURS TOPICAL PATCH TD SCH (09:25)
[2022-08-06] MEDS: METOPROLOL TARTRATE 25 MG TABLET (FP) PO SCH ×2 (10:34→21:40)
[2022-08-06] MEDS: KCL 10 MEQ IVPB 10 MEQ/100 ML INFUS.BAG IVPB SCH ×3 (12:59→15:14)
[2022-08-06] MEDS: LACTULOSE 20 GM/30 ML UDC (FOR ORAL USE ONLY) PO SCH ×2 (14:15→21:39)
[2022-08-06 17:23] LABS: BASO % 1.3 % (0-2.0); EOS % 2.8 % (0-4.5); HEMATOCRIT 27.6 % (32.4-45.2); HEMOGLOBIN 9.2 GM/dL (10.7-15.3); LYMPH % 13.3 % (8-40); MCHC 33.4 g/dl (32.0-36.0); MEAN PLT VOLUME 9.1 fl (7.5-11.1); MONO % 13.2 % (3.8-10.2); NEUT % 69.4 % (42.8-82.8); PLATELET COUNT 126 10^3/uL (134-434); RBC 2.97 M/mm3 (3.60-5.2); RDW 19.2 % (11.6-15.6)
[2022-08-06] MEDS ORDERED: SODIUM CHLORIDE 1,000 ML IV SCH (18:45)
[2022-08-07] MEDS ORDERED: LORazepam 0.5 MG TABLET PO ONE ×2 (05:00)
[2022-08-07] MEDS: LACTULOSE 20 GM/30 ML UDC (FOR ORAL USE ONLY) PO SCH (05:57)
[2022-08-07 07:47] LABS: INR 1.22 (0.83-1.09); PROTHROMBIN TIME (PATIENT) 14.1 SEC (9.7-13.0)
[2022-08-07 07:52] LABS: BASO % 0.9 % (0-2.0); EOS % 2.4 % (0-4.5); HEMOGLOBIN 9.4 GM/dL (10.7-15.3); MCH 31.6 pg (25.7-33.7); MCHC 33.7 g/dl (32.0-36.0); MEAN CELL VOLUME 93.8 fl (80-96); MEAN PLT VOLUME 9.1 fl (7.5-11.1); MONO % 14.6 % (3.8-10.2); NEUT % 61.1 % (42.8-82.8); PLATELET COUNT 140 10^3/uL (134-434); RBC 2.98 M/mm3 (3.60-5.2); RDW 19.8 % (11.6-15.6); WHITE BLOOD COUNT 4.4 K/mm3 (4.0-10.0)
[2022-08-07 08:08] LABS: CHLORIDE 103 mmol/L (98-107); SODIUM 142 mmol/L (136-145)
[2022-08-07 08:16] LABS: CREATININE 0.7 mg/dL (0.55-1.3); SGOT/AST 204 U/L (15-37)
[2022-08-07 08:17] LABS: BLOOD UREA NITROGEN 4.9 mg/dL (7-18); TOT PROT 5.2 g/dl (6.4-8.2)
[2022-08-07 08:18] LABS: BILIRUBIN,TOTAL 2.6 mg/dL (0.2-1)
[2022-08-07 08:19] LABS: ALK PHOS 113 U/L (45-117)
[2022-08-07 08:20] LABS: CALCIUM 7.1 mg/dL (8.5-10.1); CO2 27 mmol/L (21-32); GLUCOSE,RANDOM 102 mg/dL (74-106); MAGNESIUM 1.2 mg/dL (1.8-2.4); PHOSPHOROUS 2.2 mg/dL (2.5-4.9); SGPT/ALT 46 U/L (13-61)
[2022-08-07 08:23] LABS: ALBUMIN 2.1 g/dl (3.4-5.0); ANION GAP 11 MMOL/L (8-16)
[2022-08-07] MEDS ORDERED: POTASSIUM CHLORIDE ORAL LIQUID 20 MEQ/15 ML PO ONE ×2 (09:58→20:00)
[2022-08-07] MEDS ORDERED: MAGNESIUM 2GM/50ML STERILE WATER IVPB IVPB ONE (10:31)
[2022-08-07] MEDS ORDERED: NAPH,MB-DB/K PH,MBDB POWDER PACKET PO ONE (10:33)
[2022-08-07] MEDS: NICOTINE 21 MG/24 HOURS TOPICAL PATCH TD SCH (10:36)
[2022-08-07] MEDS: KCL 10 MEQ IVPB 10 MEQ/100 ML INFUS.BAG IVPB SCH ×2 (10:36→12:04)
[2022-08-07] MEDS: PANTOPRAZOLE 40 MG TABLET PO SCH (10:36)
[2022-08-07] MEDS: FOLIC ACID 1 MG TABLET (FP) PO SCH (10:36)
[2022-08-07] MEDS: THIAMINE HCL 100 MG TABLET (FP) PO SCH (10:36)
[2022-08-07] MEDS: METOPROLOL TARTRATE 25 MG TABLET (FP) PO SCH ×2 (10:36→21:27)
[2022-08-07 14:11] LABS: BLOOD UREA NITROGEN 5.2 mg/dL (7-18); CALCIUM 7.4 mg/dL (8.5-10.1)
[2022-08-07 14:15] LABS: CREATININE 0.7 mg/dL (0.55-1.3)
[2022-08-07] MEDS: VANCOMYCIN 250 MG/5 ML ORAL SOLUTION PO SCH (18:00)
[2022-08-08] MEDS: VANCOMYCIN 250 MG/5 ML ORAL SOLUTION PO SCH ×4 (02:26→18:35)
[2022-08-08 07:32] LABS: HEMATOCRIT 28.6 % (32.4-45.2); HEMOGLOBIN 9.5 GM/dL (10.7-15.3); MCH 31.8 pg (25.7-33.7); MCHC 33.3 g/dl (32.0-36.0); MEAN CELL VOLUME 95.4 fl (80-96); MEAN PLT VOLUME 8.7 fl (7.5-11.1); PLATELET COUNT 149 10^3/uL (134-434); RBC 2.99 M/mm3 (3.60-5.2); RDW 21.3 % (11.6-15.6); WHITE BLOOD COUNT 4.7 K/mm3 (4.0-10.0)
[2022-08-08 07:50] LABS: ALBUMIN 2.1 g/dl (3.4-5.0); CALCIUM 7.4 mg/dL (8.5-10.1)
[2022-08-08 07:51] LABS: BLOOD UREA NITROGEN 5.4 mg/dL (7-18); MAGNESIUM 1.3 mg/dL (1.8-2.4)
[2022-08-08 07:54] LABS: BILIRUBIN,DIRECT 1.6 mg/dL (0.0-0.2); PHOSPHOROUS 1.7 mg/dL (2.5-4.9)
[2022-08-08 07:55] LABS: BILIRUBIN,TOTAL 2.1 mg/dL (0.2-1); CREATININE 0.7 mg/dL (0.55-1.3); TOT PROT 5.3 g/dl (6.4-8.2)
[2022-08-08] MEDS: MAGNESIUM OXIDE 400 MG TABLET (FP) PO SCH (09:42)
[2022-08-08] MEDS: THIAMINE HCL 100 MG TABLET (FP) PO SCH (09:42)
[2022-08-08] MEDS: NICOTINE 21 MG/24 HOURS TOPICAL PATCH TD SCH (09:42)
[2022-08-08] MEDS: PANTOPRAZOLE 40 MG TABLET PO SCH (09:42)
[2022-08-08] MEDS ORDERED: traZODone HCL 50 MG TABLET (FP) PO ONE (11:30)
[2022-08-08] MEDS ORDERED: MAGNESIUM SULF 50% (8.12 MEQ/2 ML-1 GM VIAL) IVPB ONE (15:51)
[2022-08-08] MEDS ORDERED: NAPH,MB-DB/K PH,MBDB POWDER PACKET PO ONE ×2 (15:54→22:00)
[2022-08-08] MEDS ORDERED: MAGNESIUM 2GM/50ML STERILE WATER IVPB IVPB ONE ×2 (16:28→18:45)
[2022-08-08] MEDS ORDERED: POTASSIUM PHOSPHATE 30 MM in DEXTROSE 5%-WATER - 500 ML IVPB ONE (16:28)
[2022-08-08] MEDS: metoPROLOL SUCCINATE 25 MG TAB.SR.24H (FP) PO SCH (17:17)
[2022-08-08] MEDS: traZODone HCL 50 MG TABLET (FP) PO SCH (21:46)
[2022-08-08] MEDS ORDERED: PATIENT'S OWN MEDICATION (NON-FORMULARY) (Trazodone Hcl [Trazodone Hcl] 150 MG Tablet) PO SCH (22:00)
[2022-08-09] MEDS: VANCOMYCIN 250 MG/5 ML ORAL SOLUTION PO SCH ×4 (01:00→19:14)
[2022-08-09 07:40] LABS: HEMATOCRIT 27.9 % (32.4-45.2); HEMOGLOBIN 9.3 GM/dL (10.7-15.3); MCH 31.8 pg (25.7-33.7); MCHC 33.2 g/dl (32.0-36.0); MEAN CELL VOLUME 95.7 fl (80-96); MEAN PLT VOLUME 8.2 fl (7.5-11.1); PLATELET COUNT 143 10^3/uL (134-434); RBC 2.91 M/mm3 (3.60-5.2); RDW 21.9 % (11.6-15.6)
[2022-08-09 08:00] LABS: CALCIUM 7.5 mg/dL (8.5-10.1); MAGNESIUM 1.9 mg/dL (1.8-2.4)
[2022-08-09 08:01] LABS: BLOOD UREA NITROGEN 4.9 mg/dL (7-18)
[2022-08-09 08:06] LABS: BILIRUBIN,TOTAL 2.2 mg/dL (0.2-1); CREATININE 0.5 mg/dL (0.55-1.3); PHOSPHOROUS 2.5 mg/dL (2.5-4.9); TOT PROT 5.2 g/dl (6.4-8.2)
[2022-08-09 09:46] LABS: ANISOCYTOSIS 2+; MACROCYTOSIS 0
[2022-08-09] MEDS: NICOTINE 21 MG/24 HOURS TOPICAL PATCH TD SCH (10:58)
[2022-08-09] MEDS: metoPROLOL SUCCINATE 25 MG TAB.SR.24H (FP) PO SCH (10:59)
[2022-08-09] MEDS: MAGNESIUM OXIDE 400 MG TABLET (FP) PO SCH (10:59)
[2022-08-09] MEDS: THIAMINE HCL 100 MG TABLET (FP) PO SCH (10:59)
[2022-08-09] MEDS: POTASSIUM CHLORIDE TABS 20 MEQ TABLET.ER (FP) PO SCH (19:14)
[2022-08-09] MEDS: traZODone HCL 50 MG TABLET (FP) PO SCH (21:41)
[2022-08-10] MEDS: VANCOMYCIN 250 MG/5 ML ORAL SOLUTION PO SCH ×4 (01:04→18:08)
[2022-08-10] MEDS ORDERED: traZODone HCL 50 MG TABLET (FP) PO SCH (08:52)
[2022-08-10] MEDS ORDERED: POTASSIUM CHLORIDE ORAL LIQUID 20 MEQ/15 ML PO ONE (10:25)
[2022-08-10] MEDS: THIAMINE HCL 100 MG TABLET (FP) PO SCH (10:54)
[2022-08-10] MEDS: NICOTINE 21 MG/24 HOURS TOPICAL PATCH TD SCH (10:54)
[2022-08-10] MEDS: POTASSIUM CHLORIDE TABS 20 MEQ TABLET.ER (FP) PO SCH (10:57)
[2022-08-10] MEDS: metoPROLOL SUCCINATE 25 MG TAB.SR.24H (FP) PO SCH (10:58)
[2022-08-10] MEDS ORDERED: MAGNESIUM 1GM/D5W 100ML - 100 ML IVPB IVPB ONE (11:30)
[2022-08-11] MEDS: VANCOMYCIN 250 MG/5 ML ORAL SOLUTION PO SCH ×4 (00:15→17:57)
[2022-08-11] MEDS: THIAMINE HCL 100 MG TABLET (FP) PO SCH (10:58)
[2022-08-11] MEDS: NICOTINE 21 MG/24 HOURS TOPICAL PATCH TD SCH (10:58)
[2022-08-11] MEDS: SODIUM CHLORIDE 1,000 ML IV SCH (11:01)
[2022-08-11] MEDS: metoPROLOL SUCCINATE 25 MG TAB.SR.24H (FP) PO SCH (11:41)
[2022-08-12] MEDS: VANCOMYCIN 250 MG/5 ML ORAL SOLUTION PO SCH ×4 (00:20→19:16)
[2022-08-12 08:07] LABS: EOS % 1.7 % (0-4.5); HEMATOCRIT 29.5 % (32.4-45.2); HEMOGLOBIN 9.7 GM/dL (10.7-15.3); LYMPH % 21.7 % (8-40); MCH 31.8 pg (25.7-33.7); MEAN CELL VOLUME 96.3 fl (80-96); MONO % 17.6 % (3.8-10.2); PLATELET COUNT 186 10^3/uL (134-434); RBC 3.06 M/mm3 (3.60-5.2); RDW 21.4 % (11.6-15.6); WHITE BLOOD COUNT 6.1 K/mm3 (4.0-10.0)
[2022-08-12 08:29] LABS: BLOOD UREA NITROGEN 4.9 mg/dL (7-18); CALCIUM 7.6 mg/dL (8.5-10.1); MAGNESIUM 1.1 mg/dL (1.8-2.4)
[2022-08-12 08:32] LABS: CREATININE 0.5 mg/dL (0.55-1.3); PHOSPHOROUS 2.9 mg/dL (2.5-4.9)
[2022-08-12 08:33] LABS: TOT PROT 5.3 g/dl (6.4-8.2)
[2022-08-12 09:50] LABS: ANISOCYTOSIS 1+; MACROCYTOSIS 0
[2022-08-12] MEDS ORDERED: LACTOBACILLUS ACIDOPHILUS 1 TABLET PO SCH ×2 (10:00→22:00)
[2022-08-12] MEDS: SODIUM CHLORIDE 1,000 ML IV SCH ×2 (10:19→14:25)
[2022-08-12] MEDS: metoPROLOL SUCCINATE 25 MG TAB.SR.24H (FP) PO SCH (10:20)
[2022-08-12] MEDS: THIAMINE HCL 100 MG TABLET (FP) PO SCH (10:20)
[2022-08-12] MEDS: NICOTINE 21 MG/24 HOURS TOPICAL PATCH TD SCH (10:20)
[2022-08-12] MEDS: MAGNESIUM SULF 50% (8.12 MEQ/2 ML-1 GM VIAL) IVPB SCH ×3 (14:41→19:16)
[2022-08-12] MEDS: ZINC OXIDE 20% TOPICAL OINTMENT 30 GM TUBE TP SCH ×2 (14:52→21:42)
[2022-08-12] MEDS ORDERED: MAGNESIUM SULF 50% (8.12 MEQ/2 ML-1 GM VIAL) ONE (18:16)
[2022-08-13] MEDS: VANCOMYCIN 250 MG/5 ML ORAL SOLUTION PO SCH ×4 (00:30→17:29)
[2022-08-13] MEDS ORDERED: DEXTROSE 50%-WATER 25 GM/50 ML DISP.SYRIN IVPUSH PRN ×2 (07:17→21:38)
[2022-08-13 07:43] LABS: EOS % 1.5 % (0-4.5); HEMATOCRIT 29.5 % (32.4-45.2); HEMOGLOBIN 9.6 GM/dL (10.7-15.3); LYMPH % 17.8 % (8-40); MCH 31.1 pg (25.7-33.7); MCHC 32.6 g/dl (32.0-36.0); MEAN CELL VOLUME 95.5 fl (80-96); MONO % 15.3 % (3.8-10.2); NEUT % 64.4 % (42.8-82.8); PLATELET COUNT 219 10^3/uL (134-434); RBC 3.09 M/mm3 (3.60-5.2); RDW 20.5 % (11.6-15.6); WHITE BLOOD COUNT 6.4 K/mm3 (4.0-10.0)
[2022-08-13 08:30] LABS: BLOOD UREA NITROGEN 3.9 mg/dL (7-18); CALCIUM 7.6 mg/dL (8.5-10.1); MAGNESIUM 2.3 mg/dL (1.8-2.4)
[2022-08-13 08:33] LABS: CREATININE 0.5 mg/dL (0.55-1.3); PHOSPHOROUS 2.1 mg/dL (2.5-4.9)
[2022-08-13 08:35] LABS: BILIRUBIN,TOTAL 1.8 mg/dL (0.2-1); TOT PROT 5.5 g/dl (6.4-8.2)
[2022-08-13] MEDS: ZINC OXIDE 20% TOPICAL OINTMENT 30 GM TUBE TP SCH ×2 (10:57→22:03)
[2022-08-13] MEDS: BANATROL PLUS POWDER PACKET PO SCH ×3 (10:57→22:02)
[2022-08-13] MEDS: metoPROLOL SUCCINATE 25 MG TAB.SR.24H (FP) PO SCH (10:57)
[2022-08-13] MEDS: THIAMINE HCL 100 MG TABLET (FP) PO SCH (10:57)
[2022-08-13] MEDS: NICOTINE 21 MG/24 HOURS TOPICAL PATCH TD SCH (10:57)
[2022-08-13] MEDS: SODIUM CHLORIDE 1,000 ML IV SCH ×2 (13:00→22:03)
[2022-08-13] MEDS ORDERED: MELATONIN 5 MG TABLETS PO PRN (21:47)
[2022-08-13] MEDS: LACTOBACILLUS ACIDOPHILUS 1 TABLET PO SCH (22:02)
[2022-08-14] MEDS: VANCOMYCIN 250 MG/5 ML ORAL SOLUTION PO SCH ×4 (00:58→18:09)
[2022-08-14] MEDS ORDERED: hydrOXYzine PAMOATE 25 MG CAPSULE (FP) PO ONE (01:32)
[2022-08-14] MEDS: BANATROL PLUS POWDER PACKET PO SCH ×3 (06:45→22:44)
[2022-08-14] MEDS: NICOTINE 21 MG/24 HOURS TOPICAL PATCH TD SCH (12:13)
[2022-08-14] MEDS: THIAMINE HCL 100 MG TABLET (FP) PO SCH (12:13)
[2022-08-14] MEDS: metoPROLOL SUCCINATE 25 MG TAB.SR.24H (FP) PO SCH (12:13)
[2022-08-14 12:37] LABS: EOS % 1.9 % (0-4.5); HEMOGLOBIN 9.5 GM/dL (10.7-15.3); LYMPH % 16.5 % (8-40); MCH 31.6 pg (25.7-33.7); MCHC 32.8 g/dl (32.0-36.0); MEAN CELL VOLUME 96.2 fl (80-96); MEAN PLT VOLUME 8.7 fl (7.5-11.1); MONO % 13.8 % (3.8-10.2); NEUT % 65.8 % (42.8-82.8); PLATELET COUNT 216 10^3/uL (134-434); RBC 3.01 M/mm3 (3.60-5.2); RDW 20.7 % (11.6-15.6); WHITE BLOOD COUNT 5.9 K/mm3 (4.0-10.0)
[2022-08-14 13:04] LABS: ALBUMIN 1.9 g/dl (3.4-5.0); BLOOD UREA NITROGEN 3.8 mg/dL (7-18); MAGNESIUM 1.6 mg/dL (1.8-2.4)
[2022-08-14 13:06] LABS: CREATININE 0.5 mg/dL (0.55-1.3); PHOSPHOROUS 2.3 mg/dL (2.5-4.9)
[2022-08-14 13:07] LABS: BILIRUBIN,TOTAL 1.7 mg/dL (0.2-1); TOT PROT 5.4 g/dl (6.4-8.2)
[2022-08-14] MEDS: ZINC OXIDE 20% TOPICAL OINTMENT 30 GM TUBE TP SCH ×2 (14:00→22:18)
[2022-08-14] MEDS ORDERED: MAGNESIUM 2GM/50ML STERILE WATER IVPB IVPB ONE (19:05)
[2022-08-14] MEDS: SODIUM CHLORIDE 1,000 ML IV SCH (19:11)
[2022-08-14] MEDS: LACTOBACILLUS ACIDOPHILUS 1 TABLET PO SCH (22:17)
[2022-08-15] MEDS: VANCOMYCIN 250 MG/5 ML ORAL SOLUTION PO SCH ×4 (01:00→17:19)
[2022-08-15] MEDS: BANATROL PLUS POWDER PACKET PO SCH ×4 (06:36→21:45)
[2022-08-15] MEDS: SODIUM CHLORIDE 1,000 ML IV SCH ×2 (09:58→21:46)
[2022-08-15] MEDS: metoPROLOL SUCCINATE 25 MG TAB.SR.24H (FP) PO SCH (10:00)
[2022-08-15] MEDS: NICOTINE 21 MG/24 HOURS TOPICAL PATCH TD SCH (10:00)
[2022-08-15] MEDS: THIAMINE HCL 100 MG TABLET (FP) PO SCH (10:01)
[2022-08-15] MEDS: ZINC OXIDE 20% TOPICAL OINTMENT 30 GM TUBE TP SCH ×2 (10:01→21:46)
[2022-08-15 10:21] LABS: EOS % 2.3 % (0-4.5); LYMPH % 20.3 % (8-40); MCH 31.2 pg (25.7-33.7); MCHC 32.2 g/dl (32.0-36.0); MEAN CELL VOLUME 96.7 fl (80-96); MEAN PLT VOLUME 9.3 fl (7.5-11.1); MONO % 12.5 % (3.8-10.2); NEUT % 62.9 % (42.8-82.8); PLATELET COUNT 247 10^3/uL (134-434); RBC 3.21 M/mm3 (3.60-5.2); WHITE BLOOD COUNT 6.3 K/mm3 (4.0-10.0)
[2022-08-15 10:47] LABS: CALCIUM 8.2 mg/dL (8.5-10.1)
[2022-08-15 10:48] LABS: ALBUMIN 2.1 g/dl (3.4-5.0); BLOOD UREA NITROGEN 3.7 mg/dL (7-18); MAGNESIUM 1.5 mg/dL (1.8-2.4)
[2022-08-15 10:51] LABS: BILIRUBIN,TOTAL 1.6 mg/dL (0.2-1); CREATININE 0.5 mg/dL (0.55-1.3); PHOSPHOROUS 2.3 mg/dL (2.5-4.9); TOT PROT 5.9 g/dl (6.4-8.2)
[2022-08-15 12:11] LABS: ANISOCYTOSIS 2+; MACROCYTOSIS 1+; OVALOCYTE 2+; TARGET CELLS 1+
[2022-08-15] MEDS ORDERED: MAGNESIUM SULF 50% (8.12 MEQ/2 ML-1 GM VIAL) IVPB SCH (16:45)
[2022-08-15] MEDS: MAGNESIUM 2GM/50ML STERILE WATER IVPB IVPB SCH ×2 (17:00→18:15)
[2022-08-15] MEDS: NAPH,MB-DB/K PH,MBDB POWDER PACKET PO SCH (21:44)
[2022-08-15] MEDS: LACTOBACILLUS ACIDOPHILUS 1 TABLET PO SCH (21:45)
[2022-08-16] MEDS: VANCOMYCIN 250 MG/5 ML ORAL SOLUTION PO SCH ×4 (00:24→17:03)
[2022-08-16] MEDS: NAPH,MB-DB/K PH,MBDB POWDER PACKET PO SCH ×2 (06:47→12:59)
[2022-08-16] MEDS: BANATROL PLUS POWDER PACKET PO SCH ×3 (06:47→22:39)
[2022-08-16] MEDS: THIAMINE HCL 100 MG TABLET (FP) PO SCH (09:02)
[2022-08-16] MEDS: NICOTINE 21 MG/24 HOURS TOPICAL PATCH TD SCH (09:02)
[2022-08-16] MEDS: metoPROLOL SUCCINATE 25 MG TAB.SR.24H (FP) PO SCH (09:03)
[2022-08-16] MEDS: ZINC OXIDE 20% TOPICAL OINTMENT 30 GM TUBE TP SCH ×2 (09:03→22:45)
[2022-08-16 09:34] LABS: BASO % 1.9 % (0-2.0); EOS % 1.6 % (0-4.5); HEMATOCRIT 30.9 % (32.4-45.2); HEMOGLOBIN 10.2 GM/dL (10.7-15.3); LYMPH % 20.1 % (8-40); MCH 31.7 pg (25.7-33.7); MCHC 32.8 g/dl (32.0-36.0); MEAN CELL VOLUME 96.5 fl (80-96); MEAN PLT VOLUME 9.2 fl (7.5-11.1); NEUT % 69.4 % (42.8-82.8); PLATELET COUNT 243 10^3/uL (134-434); RBC 3.21 M/mm3 (3.60-5.2); RDW 20.7 % (11.6-15.6); WHITE BLOOD COUNT 6.5 K/mm3 (4.0-10.0)
[2022-08-16] MEDS ORDERED: MELATONIN 5 MG TABLETS PO PRN (09:46)
[2022-08-16 10:16] LABS: ALBUMIN 2.1 g/dl (3.4-5.0)
[2022-08-16 10:17] LABS: BLOOD UREA NITROGEN 3.3 mg/dL (7-18); CALCIUM 7.8 mg/dL (8.5-10.1)
[2022-08-16 10:18] LABS: MAGNESIUM 1.7 mg/dL (1.8-2.4)
[2022-08-16 10:27] LABS: BILIRUBIN,TOTAL 1.3 mg/dL (0.2-1); CREATININE 0.6 mg/dL (0.55-1.3); PHOSPHOROUS 2.6 mg/dL (2.5-4.9)
[2022-08-16 10:28] LABS: TOT PROT 5.8 g/dl (6.4-8.2)
[2022-08-16] MEDS ORDERED: POTASSIUM CHLORIDE TABS 20 MEQ TABLET.ER (FP) PO ONE (13:04)
[2022-08-16] MEDS ORDERED: MAGNESIUM SULFATE IN WATER 2 GM/50 ML IVPB IVPB ONE (13:10)
[2022-08-16] MEDS: traZODone HCL 50 MG TABLET (FP) PO SCH (22:39)
[2022-08-16] MEDS: LACTOBACILLUS ACIDOPHILUS 1 TABLET PO SCH (22:39)
[2022-08-17] MEDS: VANCOMYCIN 250 MG/5 ML ORAL SOLUTION PO SCH ×3 (01:02→12:46)
[2022-08-17] MEDS: BANATROL PLUS POWDER PACKET PO SCH ×3 (06:48→21:49)
[2022-08-17 10:16] LABS: HEMATOCRIT 34.2 % (32.4-45.2); HEMOGLOBIN 10.9 GM/dL (10.7-15.3); MCH 30.9 pg (25.7-33.7); MEAN CELL VOLUME 96.6 fl (80-96); MEAN PLT VOLUME 9.4 fl (7.5-11.1); PLATELET COUNT 284 10^3/uL (134-434); RBC 3.54 M/mm3 (3.60-5.2); RDW 20.5 % (11.6-15.6); WHITE BLOOD COUNT 7.4 K/mm3 (4.0-10.0)
[2022-08-17] MEDS: FOLIC ACID 1 MG TABLET (FP) PO SCH (10:29)
[2022-08-17] MEDS: metoPROLOL SUCCINATE 25 MG TAB.SR.24H (FP) PO SCH (10:29)
[2022-08-17] MEDS: NICOTINE 21 MG/24 HOURS TOPICAL PATCH TD SCH (10:29)
[2022-08-17] MEDS: THIAMINE HCL 100 MG TABLET (FP) PO SCH (10:29)
[2022-08-17] MEDS: ZINC OXIDE 20% TOPICAL OINTMENT 30 GM TUBE TP SCH ×2 (10:31→21:51)
[2022-08-17 10:34] LABS: CHLORIDE 105 mmol/L (98-107); SODIUM 137 mmol/L (136-145)
[2022-08-17 10:36] LABS: ALBUMIN 2.2 g/dl (3.4-5.0); ANION GAP 10 MMOL/L (8-16); CALCIUM 8.5 mg/dL (8.5-10.1); CO2 22 mmol/L (21-32); GLUCOSE,RANDOM 230 mg/dL (74-106); MAGNESIUM 1.6 mg/dL (1.8-2.4)
[2022-08-17 10:39] LABS: CREATININE 0.6 mg/dL (0.55-1.3); PHOSPHOROUS 3.2 mg/dL (2.5-4.9); SGOT/AST 124 U/L (15-37); SGPT/ALT 43 U/L (13-61)
[2022-08-17 10:41] LABS: ALK PHOS 127 U/L (45-117); BILIRUBIN,TOTAL 1.6 mg/dL (0.2-1); TOT PROT 6.4 g/dl (6.4-8.2)
[2022-08-17 10:44] LABS: BLOOD UREA NITROGEN 2.2 mg/dL (7-18)
[2022-08-17] MEDS ORDERED: MAGNESIUM OXIDE 400 MG TABLET (FP) PO ONE (11:49)
[2022-08-17] MEDS: FERROUS SO4 325 MG TABLET (FP) PO SCH (15:02)
[2022-08-17] MEDS: MULTIVITAMINS (DAILY MVI) TABLET (FP) PO SCH (15:02)
[2022-08-17] MEDS: PANTOPRAZOLE 40 MG TABLET PO SCH (15:02)
[2022-08-17] MEDS: amLODIPine BESYLATE 10 MG TABLET (FP) PO SCH (15:17)
[2022-08-17] MEDS: ACAMPROSATE CALCIUM 333 MG TABLET.DR PO SCH ×2 (18:11→21:49)
[2022-08-17] MEDS: traZODone HCL 50 MG TABLET (FP) PO SCH (21:50)
[2022-08-17] MEDS: LACTOBACILLUS ACIDOPHILUS 1 TABLET PO SCH (21:50)
[2022-08-18] MEDS: ACAMPROSATE CALCIUM 333 MG TABLET.DR PO SCH ×2 (05:33→13:49)
[2022-08-18] MEDS: BANATROL PLUS POWDER PACKET PO SCH ×2 (05:33→13:49)
[2022-08-18] MEDS: metoPROLOL SUCCINATE 25 MG TAB.SR.24H (FP) PO SCH (09:42)
[2022-08-18] MEDS: FERROUS SO4 325 MG TABLET (FP) PO SCH (09:45)
[2022-08-18] MEDS: amLODIPine BESYLATE 10 MG TABLET (FP) PO SCH (09:46)
[2022-08-18] MEDS: THIAMINE HCL 100 MG TABLET (FP) PO SCH (09:47)
[2022-08-18] MEDS: MULTIVITAMINS (DAILY MVI) TABLET (FP) PO SCH (09:47)
[2022-08-18] MEDS: NICOTINE 21 MG/24 HOURS TOPICAL PATCH TD SCH (09:48)
[2022-08-18] MEDS: PANTOPRAZOLE 40 MG TABLET PO SCH (09:48)
[2022-08-18] MEDS: FOLIC ACID 1 MG TABLET (FP) PO SCH (09:48)
[2022-08-18 09:55] VITALS: RESP 18
[2022-08-18] MEDS: ZINC OXIDE 20% TOPICAL OINTMENT 30 GM TUBE TP SCH (09:57)
[2022-08-18 15:49] VITALS: BP 96/64; PULSE 84; TEMP 97.7
== END 2022-08-18 16:30 | disposition home or self-care (01) | DRG 377 ==
LOC: JER 17:21 → JERBED 08-04 00:32 → J4W 08-04 21:35 → J8W 08-13 14:55
PROVIDERS: ADMIT Internal Medicine; ATTEND Internal Medicine
PROC: 30233N1 Transfusion of Nonautologous Red Blood Cells into Peripheral Vein, Percutaneous Approach (ICD-10-PCS; principal; 2022-08-04)
PROC: HZ2ZZZZ Detoxification Services for Substance Abuse Treatment (ICD-10-PCS; 2022-08-04)
PROC: 0DB98ZX Excision of Duodenum, Via Natural or Artificial Opening Endoscopic, Diagnostic (ICD-10-PCS; 2022-08-05)
PROC: 0DB68ZX Excision of Stomach, Via Natural or Artificial Opening Endoscopic, Diagnostic (ICD-10-PCS; 2022-08-05)
DX: K92.2 Gastrointestinal hemorrhage, unspecified (principal); G92.9 Unspecified toxic encephalopathy; A04.72 Enterocolitis due to Clostridium difficile, not specified as recurrent; F10.239 Alcohol dependence with withdrawal, unspecified; D62 Acute posthemorrhagic anemia; I24.8 Other forms of acute ischemic heart disease; E87.21 Acute metabolic acidosis; K76.6 Portal hypertension; R29.6 Repeated falls; F32.A Depression, unspecified; I10 Essential (primary) hypertension; F43.12 Post-traumatic stress disorder, chronic; R00.0 Tachycardia, unspecified; D69.6 Thrombocytopenia, unspecified; K70.10 Alcoholic hepatitis without ascites; K72.90 Hepatic failure, unspecified without coma; R77.8 Other specified abnormalities of plasma proteins; R41.82 Altered mental status, unspecified; E87.6 Hypokalemia; E83.42 Hypomagnesemia; E83.39 Other disorders of phosphorus metabolism; K76.0 Fatty (change of) liver, not elsewhere classified; G47.00 Insomnia, unspecified; I95.1 Orthostatic hypotension; E86.0 Dehydration; R79.89 Other specified abnormal findings of blood chemistry; R19.5 Other fecal abnormalities; K70.30 Alcoholic cirrhosis of liver without ascites; F17.210 Nicotine dependence, cigarettes, uncomplicated
CPT/HCPCS: 0241U-QW; 36415; 36430; 70450-TC; 71045-TC-FY; 72125-TC; 74174-TC; 76705-TC; 80048; 80053; 80076; 80307; 81003; 82105; 82140; 82248; 82272; 82607; 82728; 82746; 82962; 83010; 83540; 83550; 83605; 83615; 83735; 84100; 84439; 84443; 84484; 85025; 85027; 85045; 85610; 85651; 86038; 86140; 86704; 86803; 86850; 86900; 86901; 86922; 87045; 87046; 87205; 87324; 87340; 87449; 87517; 87522; 88305-TC; 93005; 93010; 93306-TC; 97116-GP; 97161-GP; 99285-25; C9803-CS; G0480; P9058; U0003; U0005